=== PATIENT | female | born 2000 | race Caucasian/White ===

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

== ENCOUNTER 2022-10-13 16:29 | Emergency (ER) | payer BC, OTHER ==
[2022-10-13 20:27] VITALS: BP 129/84; PULSE 95
== END 2022-10-13 20:05 | disposition home or self-care (01) ==
LOC: FB.ED 16:29
DX: S63.501A Unspecified sprain of right wrist, initial encounter (principal); S43.401A Unspecified sprain of right shoulder joint, initial encounter; X50.0XXA Overexertion from strenuous movement or load, initial encounter; Y99.0 Civilian activity done for income or pay
CPT/HCPCS: 73030-RT; 73110-RT; 99282; 99283

== ENCOUNTER 2024-10-20 20:20 | Emergency (ER) | payer BC ==
[2024-10-20 22:27] VITALS: BP 141/60
[2024-10-21 00:24] VITALS: PULSE 101
== END 2024-10-21 00:20 | disposition home or self-care (01) ==
LOC: FB.ED 20:20
DX: J06.9 Acute upper respiratory infection, unspecified (principal); Z79.899 Other long term (current) drug therapy
CPT/HCPCS: 87428-QW; 87651-QW; 99283